=== PATIENT | male | born 1960 | race Caucasian/White ===

== ENCOUNTER 2019-02-09 12:47 | Emergency (ER) | payer OTHER ==
[~2019-02-09] VITALS: Ht 190.5 cm; Wt 87.5 kg
[2019-02-09] MEDS ORDERED: AUGMENTIN 875-1 EACH PO (13:05)
[2019-02-09] MEDS ORDERED: KEFLEX500 M1 PO (14:09)
[2019-02-09] MEDS ORDERED: NORCO 5-325 TA1 EAC1 PO (14:09)
[2019-02-09 14:45] VITALS: BP 130/65
== END 2019-02-09 14:46 | disposition home or self-care (01) ==
LOC: M.ERS 12:47
DX: S82.292A Other fracture of shaft of left tibia, initial encounter for closed fracture (principal); W29.3XXA Contact with powered garden and outdoor hand tools and machinery, initial encounter; Y93.89 Activity, other specified; Y92.89 Other specified places as the place of occurrence of the external cause; Y99.8 Other external cause status